=== PATIENT | female | born 1955 | race Caucasian/White ===

== ENCOUNTER 2022-03-13 06:23 | Day surgery (SDC) | payer BC ==
[~2022-03-13] VITALS: Ht 165.1 cm; Wt 59.0 kg
[2022-03-13] MEDS ORDERED: ACETAMINOPHEN I.V. 1000 MG 100 ML IV ONE (08:01)
[2022-03-13] MEDS ORDERED: OXYMETAZOLINE HCL 0.05% NASAL SPRAY NS ONE (08:53)
[2022-03-13] MEDS ORDERED: PROPOFOL 200MG/ 20ML VIAL (DIPRIVAN) IV ONE (08:53)
[2022-03-13] MEDS ORDERED: ROCURONIUM BROMIDE 10 MG/ML (ZEMURON) IV ONE (08:53)
[2022-03-13] MEDS ORDERED: fentaNYL CITRATE/PF 100 MCG/2 ML AMP IVP ONE (08:53)
[2022-03-13] MEDS ORDERED: LEVOFLOXACIN 500 mg/D5W 100 mL IVPB IV ONE (08:53)
[2022-03-13] MEDS ORDERED: ePHEDrine sulfate 50 MG/ML VIAL IVP ONE (08:53)
[2022-03-13] MEDS ORDERED: WATER FOR IRRIGATION,STERILE 1,000 ML IRRIG.SOLN IR ONE (08:53)
[2022-03-13] MEDS ORDERED: DEXAMETHASONE SOD PHOSPHATE 4 MG/ML VIAL IVP ONE (08:53)
[2022-03-13] MEDS ORDERED: NS IRRIG SOLN 1000 ML IR ONE (08:53)
[2022-03-13] MEDS ORDERED: LIDOCAINE/EPI 1% 1:100000 20 ML VIAL INJ ONE (08:53)
[2022-03-13] MEDS ORDERED: ONDANSETRON HCL 4 MG/2 ML VIAL IVP ONE (08:53)
[2022-03-13] MEDS ORDERED: DESFLURANE 15 MIN GAS INH ONE (08:53)
[2022-03-13] MEDS ORDERED: EPINEPHrine HCL 1 MG/ML VIAL IV ONE (08:53)
[2022-03-13] MEDS ORDERED: MIDAZOLAM HCL 5 MG/5 ML VIAL IVP ONE (08:53)
[2022-03-13] MEDS ORDERED: LR 1,000 ML IV.SOLN IV ONE (08:53)
[2022-03-13] MEDS ORDERED: LIDOCAINE MPF 2% 5mL VIAL INJ ONE (08:53)
[2022-03-13] MEDS ORDERED: MEPERIDINE HCL/PF 25 MG/ML DISP.SYRIN IVP PRN (09:45)
[2022-03-13] MEDS ORDERED: LR 1,000 ML IV SCH (09:45)
[2022-03-13] MEDS ORDERED: HYDROmorphone 1 MG/ML INJ. CARTRIDGE IVP PRN ×2 (09:45)
[2022-03-13] MEDS ORDERED: METOCLOPRAMIDE HCL 10 MG/2 ML VIAL IVP PRN (09:45)
[2022-03-13] MEDS ORDERED: MIDAZOLAM HCL 2 MG/2 ML VIAL (VERSED) IVP PRN (09:45)
[2022-03-13] MEDS ORDERED: hydrALAZINE HCL 20 MG/ML VIAL IVP PRN (09:45)
[2022-03-13] MEDS ORDERED: SUGAMMADEX SODIUM 200 MG/2 ML VIAL IV ONE (09:53)
[2022-03-13 13:25] VITALS: BP_SYST 110
== END 2022-03-13 14:35 | disposition home or self-care (01) ==
LOC: SDS 06:23 → SMU 06:25 → SDS 14:35
PROVIDERS: ATTEND Otolaryngology
DX: J32.9 Chronic sinusitis, unspecified (principal); D38.5 Neoplasm of uncertain behavior of other respiratory organs; D38.6 Neoplasm of uncertain behavior of respiratory organ, unspecified; E78.00 Pure hypercholesterolemia, unspecified; N95.1 Menopausal and female climacteric states; Z20.822 Contact with and (suspected) exposure to COVID-19; Z79.899 Other long term (current) drug therapy
CPT/HCPCS: 30140; 30520; 31240; 31255; 31295; 31298; 36415 ×2; 87070 ×2; 87075; 87101; 87426; 88305; 88311; C1726; J0131; J0171; J1100; J1956; J2001; J2250; J2405; J2704; J3010; J3490; J7120; U0003; 88304; 88313

== ENCOUNTER 2024-06-02 08:06 | Day surgery (SDC) | payer BC ==
[~2024-06-02] VITALS: Ht 165.1 cm; Wt 59.9 kg
[2024-06-02 09:56] VITALS: BP_SYST 106; PULSE 48; RESP 20; TEMP 99.1; O2SAT 100
== END 2024-06-02 17:20 | disposition home or self-care (01) ==
LOC: SDS 08:06 → SMU 08:07 → SDS 17:20
PROVIDERS: ATTEND Otolaryngology
DX: D38.5 Neoplasm of uncertain behavior of other respiratory organs (principal); Z53.8 Procedure and treatment not carried out for other reasons; J32.9 Chronic sinusitis, unspecified; I07.1 Rheumatic tricuspid insufficiency; I44.4 Left anterior fascicular block; E78.00 Pure hypercholesterolemia, unspecified; J30.1 Allergic rhinitis due to pollen; R00.1 Bradycardia, unspecified; M19.90 Unspecified osteoarthritis, unspecified site; Z98.891 History of uterine scar from previous surgery; Z79.899 Other long term (current) drug therapy
CPT/HCPCS: 93005; 93306